=== PATIENT | female | born 1995 | race African-American/Black ===

== ENCOUNTER 2024-01-25 12:43 | Outpatient (CLI) | payer OTHER ==
[2024-01-25 13:14] LABS: BASOPHILS % (AUTO) 0.4 %; EOSINOPHILS # (AUTO) 0.2 10^3/uL (0.0-0.7); EOSINOPHILS % (AUTO) 3.3 %; HCT - HEMATOCRIT 33.7 % (37.0-47.0); HGB - HEMOGLOBIN 10.4 g/dL (12.0-16.0); LYMPHOCYTES # (AUTO) 1.2 10^3/uL (1.5-3.5); LYMPHOCYTES % (AUTO) 26.5 %; MEAN CORPUSCULAR HEMOGLOBIN 25.6 pg (27.0-31.0); MEAN CORPUSCULAR HGB CONC 30.9 g/dL (32.0-36.0); MEAN CORPUSCULAR VOLUME 82.8 fL (81.0-99.0); MONOCYTES # (AUTO) 0.3 10^3/uL (0.0-1.0); MONOCYTES % (AUTO) 6.3 %; NEUTROPHILS # (AUTO) 2.9 10^3/uL (1.5-6.6); NEUTROPHILS % (AUTO) 63.1 %; PLT - PLATELET COUNT 184 10^3/uL (130-450); RED BLOOD COUNT 4.07 10^6/uL (4.20-5.40); WHITE BLOOD COUNT 4.6 x10^3/uL (4.8-10.8)
[2024-01-25 19:06] LABS: CHLAMYDIA TRACHOMATIS DNA NEGATIVE (NEGATIVE); NEISSERIA GONORRHOEAE DNA NEGATIVE (NEGATIVE); TRICHOMONAS VAGINALIS DNA NEGATIVE (NEGATIVE)
[2024-01-26 05:12] LABS: HBsAG SCREEN Negative (Negative); HIV SCREEN 4TH GENERATION Non Reactive (Non Reactive)
[2024-01-26 08:10] LABS: RPR Non Reactive (Non Reactive)
[2024-01-26 12:09] LABS: VARICELLA-ZOSTER AB IGG 767 index (Immune >165)
[2024-01-28 06:08] LABS: HCV AB Non Reactive (Non Reactive)
[2024-01-28 15:09] LABS: AFP MOM 1.15 (.); INSULIN DEP DIABETES No (.); MATERNAL AGE AT EDD 28.3 yr (.); MULTIPLE GESTATION No (.); OPEN SPINA BIFIDA RISK 1 IN 10000 (.); RACE Black (.); RESULTS Report (.); TEST RESULTS *Screen Negative* (.); WEIGHT 124 lbs (.)
== END 2024-01-25 12:44 | disposition home or self-care (01) ==
LOC: LAB 12:43
PROVIDERS: ATTEND Obstetrics & Gynecology
DX: Z34.90 Encounter for supervision of normal pregnancy, unspecified, unspecified trimester (principal); Z36.89 Encounter for other specified antenatal screening
CPT/HCPCS: 36415; 82105; 85025; 86592; 86762; 86787; 86803; 86850; 86900; 86901; 87340; 87389; 87491; 87591; 87661

== ENCOUNTER 2024-02-04 15:03 | Outpatient (CLI) | payer OTHER ==
--- NOTE | 2024-02-05 15:50 | Ultrasound Report ---
PROCEDURE: OB Anatomy Scan INDICATIONS: SUPERVISION OF OUTSIDE/PRIOR DATING DATA: Last menstrual period (LMP): 09/07/2023. LMP-based estimated date of delivery (KIRK): 06/13/2024. First dating scan (date and location): 02/04/2024. Estimated date of delivery (KIRK) from first dating scan: 06/11/2024. The below data below was generated using the ultrasound KIRK of 06/11/2024 TECHNIQUE: Real-time scanning was performed of the fetus, with image documentation and biometric measurements. Endovaginal scanning: Not performed. COMPARISON: None. FINDINGS: General: A single living intrauterine gestation is present. Presentation: Variable Placenta: Placental position is posterior, without previa. Amniotic fluid index: 14.3 cm, within normal limits for gestational age. heart rate: 140 beats per minute. Maternal cervical canal: 3.3 cm long; normal length is 2.5 cm or more. biometrics: Biparietal diameter: 5.1 cm, 21 weeks 3 days, 51% Head circumference: 19.2 cm, 21 weeks 3 days, 39% Abdominal circumference: 16.6 cm, 21 weeks 4 days, 49% Femur length: 3.9 cm, 22 weeks 4 days, 77% Estimated gestational age from initial scan: Not applicable Composite gestational age from present scan: 21 weeks, 5 days Estimated weight and percentile: 463 g, 72% Measurement variability in biometric dating: +/- 10 days from 12-20 weeks gestation, +/- 2 weeks from 20-30 weeks gestation, +/- 3 weeks at 30 weeks gestation or later. Anatomic survey: Neuro: Ventricles are normal at less than 10 mm. Cisterna magna is normal at 3-11 mm. Cerebellum i s normal in size and morphology. Nuchal skin fold: Normal at less than 6 mm between 14 and 20 weeks gestational age. Face: Nose and lips, facial profile are normal. Spine: No evidence for spina bifida. Heart: 4-chambered heart is present, with normal ventricular outflow tracts. Diaphragm: Diaphragm is intact. Stomach: Left-sided stomach is present. Kidneys: No hydronephrosis. Normal is less than 5 mm in 2nd trimester, less than 7 mm in 3rd trimester. Cord: 3 vessel cord has orthotopic insertion. Bladder: Normal in size. Extremities: All 4 extremities are visualized. IMPRESSION: 1.Single live intrauterine consistent with 21 weeks and 5 days. 2.Normal anatomic survey. Reviewed by: Shailesh Ge MD on 02/05/2024 3:49 PM PDT Approved by: Shailesh Ge MD on 02/05/2024 3:49 PM PDT Station ID: [id number]
== END 2024-02-04 15:04 | disposition home or self-care (01) ==
LOC: DI 15:03
PROVIDERS: ATTEND Obstetrics & Gynecology
DX: Z34.02 Encounter for supervision of normal first pregnancy, second trimester (principal)

== ENCOUNTER 2024-02-20 11:37 | Outpatient (CLI) | payer OTHER | END 2024-02-20 11:38 | disposition home or self-care (01) | LOC: LAB 11:37 | PROVIDERS: ATTEND Obstetrics & Gynecology | DX: O99.012 Anemia complicating pregnancy, second trimester (principal) | CPT/HCPCS: 36415; 81599; 82728 ==

== ENCOUNTER 2024-03-18 08:00 | Outpatient (CLI) | payer OTHER ==
[2024-03-18 16:36] LABS: BILIRUBIN,URINE NEGATIVE (NEGATIVE); GLUCOSE, URINE (UA) NEGATIVE (NEGATIVE); KETONES,URINE (UA) NEGATIVE (NEGATIVE); LEUKOCYTE ESTERASE, URINE SMALL (NEGATIVE); NITRITE,URINE NEGATIVE (NEGATIVE); OCCULT BLOOD,URINE NEGATIVE (NEGATIVE); PROTEIN,URINE NEGATIVE (NEGATIVE); UROBILINOGEN,URINE 0.2 (NORMAL) E.U./dL (NORMAL)
[2024-03-18 16:40] LABS: CLARITY,URINE CLEAR (CLEAR)
[2024-03-18 16:52] LABS: BACTERIA,URINE Rare /HPF (None Seen); RBC,URINE 0-5 /HPF (0-5); SQUAMOUS EPITHELIAL CELL,UR MOD Squamous (<= Few); WBC,URINE 0-3 /HPF (0-5)
== END 2024-03-18 23:59 | disposition home or self-care (01) ==
LOC: LAB.N 08:00
PROVIDERS: ATTEND Obstetrics & Gynecology
DX: R30.0 Dysuria (principal)
CPT/HCPCS: 81001; 87086

== ENCOUNTER 2024-04-02 14:24 | Outpatient (CLI) | payer OTHER ==
[2024-04-02 15:41] LABS: HCT - HEMATOCRIT 30.4 % (37.0-47.0); HGB - HEMOGLOBIN 9.6 g/dL (12.0-16.0); MEAN CORPUSCULAR HEMOGLOBIN 25.8 pg (27.0-31.0); MEAN CORPUSCULAR HGB CONC 31.6 g/dL (32.0-36.0); MEAN CORPUSCULAR VOLUME 81.7 fL (81.0-99.0); MEAN PLATELET VOLUME 8.6 fL (7.9-10.8); RED BLOOD COUNT 3.72 10^6/uL (4.20-5.40); RED CELL DISTRIBUTION WIDTH 13.3 % (12.0-15.0); WHITE BLOOD COUNT 5.1 x10^3/uL (4.8-10.8)
[2024-04-02 23:26] LABS: BACTERIAL VAGINOSIS DNA NEGATIVE (NEGATIVE); CANDIDA GLABRATA DNA NEGATIVE (NEGATIVE); CANDIDA GROUP DNA POSITIVE (NEGATIVE); CANDIDA KRUSEI DNA NEGATIVE (NEGATIVE); TRICHOMONAS VAGINALIS DNA NEGATIVE (NEGATIVE)
[2024-04-03 08:11] LABS: RPR Non Reactive (Non Reactive)
== END 2024-04-02 14:25 | disposition home or self-care (01) ==
LOC: LAB 14:24
PROVIDERS: ATTEND Obstetrics & Gynecology
DX: O99.012 Anemia complicating pregnancy, second trimester (principal); O99.891 Other specified diseases and conditions complicating pregnancy; N89.8 Other specified noninflammatory disorders of vagina
CPT/HCPCS: 36415; 81514; 82950; 85027; 86592

== ENCOUNTER 2024-05-31 21:32 | Inpatient (IN) ==
[2024-05-31] MEDS ORDERED: miSOPROStoL 200 MCG TABLET BC PRN (22:00)
[2024-05-31] MEDS ORDERED: NIFEdipine 10 MG CAPSULE PO PRN (22:00)
[2024-05-31] MEDS ORDERED: SODIUM CHLORIDE FLUSH 0.9% 10 ML SYRINGE IVP PRN (22:00)
[2024-05-31] MEDS ORDERED: fentaNYL 100 MCG/2 ML VIAL IVP PRN (22:00)
[2024-05-31] MEDS ORDERED: TRANEXAMIC ACID IN NACL 1,000 MG/100 ML BAG IV PRN (22:00)
[2024-05-31] MEDS ORDERED: hydrALAZINE INJ 20 MG/ML VIAL IVP PRN (22:00)
[2024-05-31] MEDS ORDERED: METHYLERGONOVINE 0.2 MG/ML VIAL IM PRN (22:00)
[2024-05-31] MEDS ORDERED: TERBUTALINE 1 MG/ML VIAL SUBQ PRN (22:00)
[2024-05-31] MEDS ORDERED: OXYTOCIN 10 UNIT/ML VIAL IM PRN (22:00)
[2024-05-31] MEDS ORDERED: LABETALOL 20 MG/4 ML SYRINGE IVP PRN ×3 (22:00)
[2024-05-31] MEDS ORDERED: lidocaine 1% 20 ML MDV ID PRN (22:00)
[2024-05-31] MEDS ORDERED: miSOPROStoL 200 MCG TABLET PR PRN (22:00)
--- NOTE | 2024-05-31 22:00 | HISTORY & PHYSICAL EXAMINATION ---
Admit History Visit Reason Visit Reason: Contractions : 1 Care: positive [facility] Smoking Status: Never smoker Mother's Labs Mother's Blood Type: positive A Mother's RH: positive Positive GBS: positive Group B Step Negative Rubella Status: positive Immune Other Maternal History Other Maternal History: HPI: painfully chuckie all day. then this evening 5 min apart and came in. here with her . desired epidural just after she arrived and it is in now and working well. did get iv iron infusion. feels better. Specific Issues/Plans LMP: 09/07/2023 (sure) KIRK by LMP:06/13/24 Initial U/S: 02/04/24 @ 21+5 (KIRK 06/11/24) FINAL KIRK: 06/13/2024 c/w LMP Late to care - From [facility]. Had insurance difficulties early in (pt speaks Tunisian, she has issues with social security card and getting insurance while partner deployed, in [place]). In [place] since [place] 09, but partner has been here 5 + years. She has met some friends, but he deployed when she got here and was difficult. He is back now and will not be deployed again until 2025. Taking aspirin. Constipation -Will try stool softener Anemia of -Negative HGB electrophoresis. low ferritin. IV iron ordered 05/01/24 baby small for dates. US ordered. 2314g 25th %tile on 05/05 Pre- Weight: 124.8 (first visit) BMI: 19 Blood type- A+ Antibody- Negative CBC: 10.4/33.7 184 Increased to 2 tabs, [employer] Blood Builder (vit c 15mg, folic acid 408mcg, B12 30mcg, Iron 26mg) RUB:Immune VZV: Immune HBsAg Negtive HepC NR RPR/AB-EIA: NR HIV: NR PAP: never GC/CT:01/24 HSV: denies self and partner Genetic testing: [id number] and AFP- Negative FAS: Placenta:Posterior w/o previa Cord: 3VC PALOMA:14.3cm EFW: 463g 72nd%ile 50gm OGCT: 88 TDAP:03/18/24 FLU: 03/18/24 Breast Pump: 04/02 RPR- NR 3rd trimester H/H 9.6/30.4 PLT 115 RSV: 05/01/24 GBS: Delivery plan: Contraception: Options discussed 05/14, uncertain OB Visit Log Initial Weight: 124 lb Date EGA Weight BP Fundal ht Pres HR Movement CTX Edema Cerv Dil Cerv Eff % Sta 04/17/24 31w 6d 136 lb(+12 lb) 96/ 26 145 active ab sent 05/01/24 33w 6d 137 lb 6 oz(+13 lb 6 oz) 98/ 30 135 active absent absent 05/08/24 34w 6d 139 lb 4 oz(+15 lb 4 oz) 102/62 31 140 active absent absent 05/14/24 35w 5d 139 lb(+15 lb) 110/70 32 cephalic by US 140 abse nt absent absent 05/21/24 36w 5d 140 lb 4 oz(+16 lb 4 oz) 98/60 32 cephalic by U S 144 active absent absent Notes Visit Date: 05/21/24 Last Updated by: Keke Hinkle MD She has no concerns today. GBS collected. She completed Fe infusion this past Sunday. Follow up growth US ordered for size<dates. Given handouts on labor preferences and perineal massage. Labor, movement precautions reviewed. Visit Date: 05/14/24 Last Updated by: Keke Hinkle MD She is overall feeling well. Having some discomfort in her upper abdomen. Does not yet have Fe infusion scheduled, they will go by hospital to see if they can schedule and will let us know if they run into difficulty. Discussed GBS next visit. Contraception options discussed, uncertain. Visit Date: 05/08/24 Last Updated by: Simin Sun MD here today with her . have not heard yet about iron infusion. Ena called [facility] while they were here. it was approved and they will call her with a [place]ian general foreman. US done, baby is 25%ile. went for a tour today after the visit. seems to be feeling very well. no complaints. baby is moving well. GBS next visit discussed. When to go to hospital reviewed. -djl Visit Date: 05/01/24 Last Updated by: Simin Sun MD doing well. here alone. [place] general foreman on [employer]. Iron infusion and US for growth check - did not get calls yet. will work on this today. ordering issues in [place]. Ena helped her get scheduled today before she left. agrees to RSV vaccine and this is given. Visit Date: 04/17/24 Last Updated by: Silverio Bernardo MD Patient doing very well today. Discussed anemia. Will get iron infusion as she is taking iron twice a day, but having some constipation although this is mildly better for her, but still anemic and worse than last check. Will get EFW for size less than dates. Discussed round ligament pain that she is having intermittent bilateral inguinal tugging. This is worse at nighttime. Discussed delivery planning. [facility] Social History Social History (Updated 04/17/24 @ 08:30 by Vanessa Morales MA)Smoking Status: Never smoker ETOH Use: None Substance Use: denies use last ultrasound: biometrics: Biparietal diameter: 8.5 cm, 34 weeks 1 day, 32nd percentile Head circumference: 31.2 cm, 34 weeks 6 days, 21st percentile Abdominal circumference: 28.9 cm, 32 weeks 6 days, 11th percentile Femur length: 6.9 cm, 35 weeks 3 days, 61st percentile Estimated gestational age from initial scan: 34 weeks 5 days Composite gestational age from present scan: 34 weeks 2 days Estimated weight and percentile: 2314 g, 25th percentile Measurement variability in biometric dating: +/- 10 days from 12-20 weeks gestation, +/- 2 weeks from 20-30 weeks gestation, +/- 3 weeks at 30 weeks gestation or more. Other: Not applicable. IMPRESSION: 1.Single live intrauterine with appropriate interval growth. 2.Estimated weight is at the 25th percentile for gestational age. 3.Amniotic fluid index is within normal limits at 10.0 cm. Reviewed by: Kaushal Mac MD on 05/05/2024 Meds/Allgy Home Medications Ambulatory Orders Medication Instructions Recorded Confirmed aspirin 81 mg tablet,delayed 81 mg PO QDAY 04/17/24 05/21/24 release (Adult Aspirin Regimen) ferrous sulfate 134 mg (27 mg 134 mg PO QDAY 04/17/24 05/21/24 iron) tablet (High Potency Iron) vitamin#30 30 mg iron-10 cap PO 04/17/24 05/21/24 mg iron-folic acid 1 mg-omg3 capsule Allergies Allergies Allergy/AdvReac Type Severity Reaction Status Date / Time No Known Drug Allergies Allergy Verified 04/17/24 08:25 [facility] Social History Social History (Updated 04/17/24 @ 08:30 by Vanessa Morales MA) Smoking Status: Never smoker Do you dip or chew tobacco?: No ETOH Use: None Substance Use: denies use Review of Systems Cardiovascular Denies: Irregular heart rate or shortness of breath with exertion Respiratory Denies: Shortness of breath Neurological Denies: Headache Physical Abdominal Exam Contraction Frequency (min/apart): q 4-5 min Contraction Intensity: positive Moderate Uterine Resting Tone: positive Soft Monitoring Heart Rate Baseline: 135 Strip Review: positive Category I Presentation Presentation: positive Vertex Vaginal Exam Membranes: positive Membranes intact Dilation (in cm): 7 Effacement (%): 100 Station: positive 0 Cervical Position: positive Midposition Speculum Exam Speculum Exam Performed: positive No Other Notes Labor Progress Note/Additional Text: comfortable with epidural Plan for Labor Plan For Labor I expect patient to be DC'd or transferred within 96 hours.: Yes Plan for Labor: vaginal delivery sometime in am. Conclusion/Plan Problem List (1) Normal labor: Plan: EFW 6.5 to 7 pounds. comfortable with epidural. anticipate . (2) 38 weeks gestation of : Lab Results Lab results reviewed: Yes 05/31/24 22:15 05/31/24 22:15
[2024-05-31 22:28] LABS: BASOPHILS % (AUTO) 0.2 %; EOSINOPHILS % (AUTO) 0.6 %; HCT - HEMATOCRIT 35.6 % (37.0-47.0); HGB - HEMOGLOBIN 11.2 g/dL (12.0-16.0); LYMPHOCYTES # (AUTO) 1.1 10^3/uL (1.5-3.5); LYMPHOCYTES % (AUTO) 17.2 %; MEAN CORPUSCULAR HEMOGLOBIN 25.6 pg (27.0-31.0); MEAN CORPUSCULAR HGB CONC 31.5 g/dL (32.0-36.0); MEAN CORPUSCULAR VOLUME 81.3 fL (81.0-99.0); MEAN PLATELET VOLUME 9.8 fL (7.9-10.8); MONOCYTES # (AUTO) 0.6 10^3/uL (0.0-1.0); MONOCYTES % (AUTO) 8.8 %; NEUTROPHILS # (AUTO) 4.6 10^3/uL (1.5-6.6); PLT - PLATELET COUNT 140 10^3/uL (130-450); RED BLOOD COUNT 4.38 10^6/uL (4.20-5.40); RED CELL DISTRIBUTION WIDTH 14.3 % (12.0-15.0); WHITE BLOOD COUNT 6.3 x10^3/uL (4.8-10.8)
[2024-05-31 22:40] LABS: ALBUMIN 3.9 g/dL (3.2-5.5); ALBUMIN/GLOBULIN RATIO 1.1 (1.0-2.2); BILIRUBIN,TOTAL 0.3 mg/dL (0.2-1.0); CREATININE 0.6 mg/dL (0.6-1.3); POTASSIUM 3.3 mmol/L (3.5-4.5); TOTAL PROTEIN 7.3 g/dL (6.4-8.9)
[2024-05-31] MEDS ORDERED: LIDOCAINE 2%-EPI 1:100000 20 ML MDV ONE (22:55)
[2024-05-31] MEDS ORDERED: ROPIVACAINE 0.2% 200 MG/100 ML BAG EP ONE (22:55)
[2024-05-31] MEDS: LACTATED RINGERS 1,000 ML IV PRN (22:55)
--- NOTE | 2024-05-31 23:43 | ANESTHESIA PROCEDURE NOTE ---
Pre-Anesthesia VS, & Labs Diagnosis Surgical Diagnosis:: term labor Procedure Procedure: labor epidural NPO NPO: Other Is Patient ?: Yes Lab Results Current Lab Results: Laboratory Tests 05/31/24 22:15: WBC 6.3, RBC 4.38, Hgb 11.2 L, Hct 35.6 L, MCV 81.3, MCH 25.6 L, MCHC 31.5 L, RDW 14.3, Plt Count 140, MPV 9.8, Neut # (Auto) 4.6, Lymph # (Auto) 1.1 L, [place] # (Auto) 0.6, Eos # (Auto) 0.0, Baso # (Auto) 0.0, Absolute Nucleated RBC 0.00, Nucleated RBC % 0.0, Sodium 135, Potassium 3.3 L, Chloride 105, Carbon Dioxide 22, Anion Gap 8.0, BUN 11, Creatinine 0.6, Estimated GFR (MDRD) 144, Glucose 85, Calcium 10.0, Total Bilirubin 0.3, AST 13, ALT 9 L, A lkaline Phosphatase 167 H, Total Protein 7.3, Albumin 3.9, Globulin 3.4, Albumin/Globulin Ratio 1.1, Blood Type A POSITIVE, Antibody Screen NEGATIVE 05/31/24 22:15 05/31/24 22:15 Meds/Allgy Home Medications Ambulatory Orders Medication Instructions Recorded Confirmed aspirin 81 mg tablet,delayed 81 mg PO QDAY 04/17/24 05/21/24 release (Adult Aspirin Regimen) ferrous sulfate 134 mg (27 mg 134 mg PO QDAY 04/17/24 05/21/24 iron) tablet (High Potency Iron) vitamin#30 30 mg iron-10 cap PO 04/17/24 05/21/24 mg iron-folic acid 1 mg-omg3 capsule Allergies Allergies Allergy/AdvReac Type Severity Reaction Status Date / Time No Known Drug Allergies Allergy Verified 04/17/24 08:25 [facility] Social History Social History (Updated 04/17/24 @ 08:30 by Vanessa Morales MA) Smoking Status: Never smoker Do you dip or chew tobacco?: No ETOH Use: None Substance Use: denies use Anesthesia Exam (Expanded) Exam General: Alert and Oriented x3 Dental: WNL Mallampati classification: I Thyromental Distance: less than 4 cm Respiratory: Lungs clear Cardiovascular: Regular rate Plan Plan Anesthesia Type: Epidural Consent for Procedure(s) Verified and Reviewed: Yes Code Status: Attempt Resuscitation ASA Classification ASA classification: 2-Mild systemic disease Is this case an emergency?: No
[2024-05-31] MEDS ORDERED: ROPIVACAINE 0.2% 200 MG/100 ML BAG EP PRN (23:52)
[2024-06-01] MEDS ORDERED: ONDANSETRON 4 MG/2 ML VIAL ONE (00:48)
[2024-06-01] MEDS: LACTATED RINGERS 1,000 ML IV SCH (00:54)
[2024-06-01] MEDS: SODIUM CHLORIDE FLUSH 0.9% 10 ML SYRINGE IVP SCH (00:54)
[2024-06-01] MEDS: ONDANSETRON 4 MG/2 ML VIAL IVP PRN (00:54)
[2024-06-01] MEDS ORDERED: CALCIUM CARBONATE CHEW 500 MG TABLET PO PRN (02:07)
[2024-06-01] MEDS ORDERED: CALCIUM CARBONATE CHEW 500 MG TABLET ONE (02:09)
[2024-06-01] MEDS: OXYTOCIN/SODIUM CHLORIDE 500 ML IV PRN (05:27)
[2024-06-01] MEDS ORDERED: NALOXONE 0.4 MG/ML VIAL IVP PRN (06:16)
[2024-06-01] MEDS ORDERED: hydrALAZINE INJ 20 MG/ML VIAL IVP PRN ×2 (06:16)
[2024-06-01] MEDS ORDERED: SIMETHICONE CHEW 80 MG TABLET PO PRN (06:16)
[2024-06-01] MEDS ORDERED: OXYTOCIN/SODIUM CHLORIDE 500 ML IV PRN (06:16)
[2024-06-01] MEDS ORDERED: LABETALOL 5 MG/1 ML 20 ML MDV IVP PRN (06:16)
[2024-06-01] MEDS ORDERED: diphenhydrAMINE 25 MG CAPSULE PO PRN (06:16)
[2024-06-01] MEDS ORDERED: NIFEdipine 10 MG CAPSULE PO PRN (06:16)
[2024-06-01] MEDS ORDERED: LABETALOL 20 MG/4 ML SYRINGE IVP PRN ×2 (06:16)
--- NOTE | 2024-06-01 06:39 | DELIVERY NOTE ---
Delivery Note Labor Labor: positive Spontaneous Infant Delivery Method Infant Delivery Method: positive Spontaneous vaginal delivery Presentation Presentation: positive Vertex and OA - occiput anterior Nuchal Cord Nuchal Cord: positive None Amniotic Fluid Description Amniotic Fluid Description: positive Clear Episiotomy Type Episiotomy Type: positive None Laceration Laceration: positive 2nd degree and Vaginal Suture Suture Type: positive Vicryl Suture Size: positive 3-0 Delivery Outcome Delivery Outcome: positive Livebirth Rodman Rodman: positive Henderson used and Warmer used Rodman sex: positive Male Cord Cord: positive 3 vessels Placenta Placenta: positive Intact and Spontaneous Estimated Blood Loss Estimated Blood Loss (in cc): 400 Post Delivery Events Post Delivery Events: positive No post delivery events Delivery Comments (Free Text/Narrative) Delivery Comments (Free Text/Narrative): Admitted in spontaneous labor. 7 cm after epidural placement. progressed spontaneously. complete at about 4:30. pushed for 45 min for spontaneous vaginal delivery of male named Maria Fernanda. Apgars 8/9. weight 6 lb 3 oz. Placenta was spontaneous. very small and pale. pitocin in IV. laceration: vaginal to second degree perineal. long perineal body or would have been a more significant. Repaired with 3-0 Vicryl in usual fashion. 2 layers for the perineum. Came together nicely. rectum checked and good support and no stitches. As baby came out, mom was very surprised and really alarmed. She did not want baby on her belly. asked us to take baby to warmer. So cord was cut at 1 min by dad, Otoniel, and baby was taken to warmer. After repair, mom was ready to try to hold her baby. Otoniel was holding baby in between but did not feel co mfortable doing skin to skin. Shanti is planning to breast feed.
--- NOTE | 2024-06-01 08:10 | PHARMACY PROGRESS NOTE ---
Best Possible Medication History Admit Date and Time: 06/01/24 [id number] Home Medications Medication Instructions Recorded Confirmed Type aspirin 81 mg tablet,delayed 81 mg PO QDAY 04/17/24 06/01/24 History release (Adult Aspirin Regimen) ferrous sulfate 134 mg (27 mg 134 mg PO QDAY 04/17/24 06/01/24 History iron) tablet (High Potency Iron) vitamin#30 30 mg iron-10 1 cap PO DAILY 04/17/24 06/01/24 History mg iron-folic acid 1 mg-omg3 capsule Processed by: Pharmacy [facility] Statement: As the person ultimately responsible for medication therapy, providers are able to order a medication from an existing home medication list in [facility] via the "Reconcile Routine" prior to Confirmation of that medication by learning support teacher. Such practice is discouraged except when the physician, in their clinical judgment, deems that a medical need exists for a medication without regard to previous use.
[2024-06-01] MEDS: IBUPROFEN 600 MG TABLET PO PRN (10:03)
[2024-06-01] MEDS: DOCUSATE SODIUM 100 MG CAPSULE PO SCH (10:04)
[2024-06-01] MEDS: ACETAMINOPHEN 325 MG TABLET PO PRN (19:44)
[2024-06-01] MEDS ORDERED: LIDOCAINE JELLY 2% 6 ML JEL.PF.APP TOP PRN (21:56)
[2024-06-01] MEDS ORDERED: oxyCODONE 5 MG TABLET PO PRN (21:56)
[2024-06-02 11:20] VITALS: O2SAT 98
--- NOTE | 2024-06-02 13:19 | Discharge Summary ---
Discharge Summary Admit Date: 05/31/24 Discharge Date: 06/02/24 Discharging Provider: Silverio Bernardo MD Code Status: Attempt Resuscitation DIAGNOSES Admission Diagnoses: Term labor Discharge Diagnoses with Status of Each Condition: Status post Delivery of live molina HPI History of Present Illness: Subjective Patient reports she is doing well. Lochia appropriate. Denies heavy bleeding. Ambulating. Pelvic and abdominal pain well-controlled. Tolerating oral intake. Diet: Regular. Voiding without difficulty. Passing flatus. Denies BM. Patient is bonding with baby in room Breast feeding going well. Denies feeling lightheaded, dizzy or excessively fatigued. Objective General: Alert, oriented, no apparent distress. Cardiovascular: Regular rate. Regular rhythm. Lungs: No increased work of breathing. Abdomen: Uterus firm. Below umbilicus. No guarding or rebound. Extremities: No pain on palpation. No cords palpated. Distal pulses intact. HOSPITAL COURSE Hospital Course: Patient was admitted at 38 weeks gestation for term labor. She progressed over the night and progressed to complete. She had a spontaneous vaginal delivery with a second-degree midline laceration. course was unremarkable and had good progression and breast-feeding. She desired to go home on day 1 and was discharged with her . Discussed bleeding, depression, healing expectations. Has follow-up scheduled in clinic. ALLERGIES Allergies Allergy/AdvReac Type Severity Reaction Status Date / Time No Known Drug Allergies Allergy Verified 06/01/24 10:35 MEDICATIONS Ambulatory Orders Medication Instructions Recorded Confirmed ferrous sulfate 134 mg (27 mg 134 mg PO QDAY 04/17/24 06/01/24 iron) tablet (High Potency Iron) vitamin#30 30 mg iron-10 1 cap PO DAILY 04/17/24 06/01/24 mg iron-folic acid 1 mg-omg3 capsule acetaminophen 325 mg tablet 650 mg (2 x 325 mg) PO Q4HR PRN 06/02/24 Pain Or Fever > 38c (100.4f) 10 days #60 tabs docusate sodium 100 mg capsule 100 mg PO BID 30 days #60 caps 06/02/24 ibuprofen 600 mg tablet 600 mg PO Q6HR PRN Moderate Pain 06/02/24 (Level 4-6) 10 days #40 tabs LABS 05/31/24 22:15 05/31/24 22:15 FOLLOW UP Follow Up: With [facility] women's care in 1 week TIME SPENT Time Spent in Discharge (Minutes): 20 Discharge Plan Discharge Patient Disposition: 01 Home, Self Care Prescriptions: New acetaminophen 325 mg Tablet 650 mg PO Q4HR PRN (Reason: Pain Or Fever > 38c (100.4f)) 10 Days Qty: 60 0RF docusate sodium 100 mg Capsule 100 mg PO BID 30 Days Qty: 60 0RF ibuprofen 600 mg Tablet 600 mg PO Q6HR PRN (Reason: Moderate Pain (Level 4-6)) 10 Days Qty: 40 0RF Continued PNV #[id number] 30 mg iron-10 mg iron-1 mg capsule 1 cap PO DAILY High Potency Iron 134 mg (27 mg iron) tablet 134 mg PO QDAY Discontinued aspirin [Adult Aspirin Regimen] 81 mg tablet,delayed release (DR/EC) 81 mg PO QDAY Diet: Regular Print Language: Slovenian Patient Instructions: Vaginal After, Depression Follow-up Care: Silverio Bernardo MD [Primary Care Provider] -
--- NOTE | 2024-06-02 15:56 | Labor Flowsheet ---
Labor Flowsheet Datetime Report Generated by CPN: 06/02/2024 15:56 Datetime: 06/02/2024 11:04 Pulse: 80 SpO2 (%): 100 Datetime: 06/02/2024 11:02 VITAL SIGNS NBP Sys/Brynn/Mean (mmHg): 112 : 68 : 78 Datetime: 06/01/2024 06:50 Stage of : Recovery Datetime: 06/01/2024 05:30 UTERINE ACTIVITY Monitor Mode: External Frequency (min): 2.5-7 Quality: Strong Duration (sec): 60-80 Pattern: Normal: <= 5 Contractions in 10 Minutes Resting Tone (Palpate): Relaxed Pitocin Checklist: At Least 1 Acceleration of 15 bpm x 15 Seconds in 30 Minutes or Adequate Variabi lity; No More than 1 Late Deceleration Occurred in Past 30 Minutes; No More than 2 Variable Decelerat ions > 60 Seconds in Duration and decreasing >60 bpm in 30 minutes; No More than 5 Uterine Contractio ns in 10 Minutes for any 20 Minute Interval; Uterus Palpates Soft between Contractions ASSESSMENT A Monitor Mode: External US FHR Baseline Rate : 140 Variability: Moderate 6-25 bpm Accelerations: 15X15 Decelerations: Early LaborFlag: Labor Datetime: 06/01/2024 05:19 COMMUNICATION Communication: Provider at Bedside Datetime: 06/01/2024 05:15 Category: Category I Datetime: 06/01/2024 05:07 Provider Notified (Name): Dr D.Sun Notification Reason: Status Update; Labor Status Datetime: 06/01/2024 05:01 STAGE 2 Pushing: Coached on Pushing Pushing Position: Pushing with Contractions Datetime: 06/01/2024 04:58 Monitor Interventions for UA: [place] Adjusted Datetime: 06/01/2024 04:47 I/O Interventions: Frausto Discontinued Patient Care Comments: 400 Datetime: 06/01/2024 04:39 Communication Comments: md notified ave complete, md order to push with pt and call for delivery Datetime: 06/01/2024 04:37 VAGINAL EXAM Dilatation (cm): 10.0 Effacement (%): 100 Station: 1 Exam by: cmach rn Datetime: 06/01/2024 03:43 Temperature (C): 36.7 Datetime: 06/01/2024 03:28 Membranes Ruptured Date/Time: 06/01/2024 03:28 Membranes Rupture Method: Spontaneous Amniotic Fluid Color: Clear Amniotic Fluid Amount: Moderate Datetime: 06/01/2024 02:21 Monitor Interventions for FHR: Ultrasound Adjusted Datetime: 06/01/2024 02:06 PATIENT CARE Patient Position/Activity: Left Tilt; Semi-Fowlers Datetime: 05/31/2024 23:23 Provider Reviewed Strip: Yes Datetime: 05/31/2024 23:08 Epidural Procedure: Cath Placed Datetime: 05/31/2024 22:48 PROCEDURE TIME OUT Procedure Verify: Correct Patient Identity; Correct Side and Site are Marked; Accurate Procedure Co nsent Form; Agreement on Procedure to be Done; Correct Patient Position; Relevant Images and Results are Properly Labeled and Displayed Epidural Positioning: Sitting Datetime: 05/31/2024 22:45 ANESTHESIA Anesthesia Plans: Epidural Anesthesia Comments: provider at bedside Datetime: 05/31/2024 22:34 Amniotic Fluid Odor: Normal Datetime: 05/31/2024 22:13 PAIN Pain Presence: Intermittent Pain Type: Cramping Pain Location: Abdomen Pain Assessment Comments: M Aube notified for epidural Datetime: 05/31/2024 21:55 Vaginal Bleeding: Normal Show Cervix, Consistency: Soft Cervix, Position: Midposition Datetime: 05/31/2024 21:52 Respirations: 20
== END 2024-06-02 15:00 | disposition home or self-care (01) | DRG 807 ==
LOC: WFO 21:32 → FBP 21:34
PROVIDERS: ADMIT Obstetrics & Gynecology; ATTEND Obstetrics & Gynecology
DX: O99.02 Anemia complicating childbirth; O70.1 Second degree perineal laceration during delivery; Z3A.38 38 weeks gestation of pregnancy; Z37.0 Single live birth